=== PATIENT | female | born 1990 | race Caucasian/White ===

== ENCOUNTER 2017-10-04 21:33 | Emergency (ER) | payer MEDICAID ==
--- NOTE | 2017-10-04 22:06 | ER Report ---
History and Physical Time Seen By MD: 22:06 HPI/ROS CHIEF COMPLAINT: Neck pain HISTORY OF PRESENT ILLNESS: 27-year-old female patient presents to emergency room with complaint of neck pain. Patient states she does have pain that is proximal to the left ear that radiates down into the left arm, occasional she' ll have numbness and tingling in her fingers. Patient states that she currently is working as a after school teacher. She states that this started before she was caring any trays. Patient states that she does have a history of muscle spasms in her neck which have resulted in needing to get injections in the past. She states that she has not had any injury to her neck. She denies any weakness in her arms. She has no nausea, vomiting or diarrhea. Patient has not taken any medication for this. She has seen her chiropractor 2 this week with some improvement but no resolution. REVIEW OF SYSTEMS: Respiratory: No cough, no dyspnea. Cardiovascular: No chest pain, no palpitations. Gastrointestinal: No vomiting, no abdominal pain. Musculoskeletal: As noted above Allergies: Coded Allergies: No Known Drug Allergies (Unverified , 10/04/17) Home Meds Active Scripts Cyclobenzaprine Hcl (CYCLOBENZAPRINE HCL) 10 Mg Tablet, 10 MG PO TID Y for MUSCLE SPASMS, #15 TAB Prov:MIKE VILLA 10/04/17 Reported Medications [depression med] No Conflict Check 10/04/17 Vits W-Ca,Fe,Fa(<1MG) ( VITAMINS) 1 Each Tablet, 1 EACH PO DAILY, TAB 10/04/17 Past Medical/Surgical History Patient has a past medical history of migraines, fractures, depression, anxiety. Patient has surgical history of right knee surgery. Reviewed Nurses Notes: Yes Constitutional Vital Sign - Last 24 Hours 10/04/17 22:44 Temp 98.1 Pulse 84 Resp 14 B/P (MAP) 109/68 Pulse Ox 95 O2 Delivery Room Air Physical Exam General Appearance: The patient is alert, has no immediate need for airway protection and no current signs of toxicity. Respiratory: Chest is non tender, lungs are clear to auscultation. Cardiac: regular rate and rhythm Gastrointestinal: Abdomen is soft and non tender, no masses, bowel sounds normal. Musculoskeletal: Neck: Neck is stiff and tender. Patient does have a palpable cord running medially and laterally to the neck, tender to the touch. Patient has not had one located in the left clavicular region. Extremities have full range of motion and are non tender. Skin: No rashes or lesions. DIFFERENTIAL DIAGNOSIS: After history and physical exam differential diagnosis was considered for muscle spasm, arthritis, fracture. Medical Decision Making EKG/Imaging Imaging CERVICAL SPINE MIN 4 VIEW COMPARISONS: None. ADDITIONAL PERTINENT HISTORY: Neck pain FINDINGS: Vertebral body heights and alignment: Mild reversal of normal cervical lordosis centered at C6-C7. Vertebral bodies: Negative. Disc spaces: Negative. Craniocervical junction: Negative. Cervical thoracic junction: Negative. Prevertebral soft tissues: Negative. Surrounding soft tissues: Negative. IMPRESSION: 1. Mild reversal of normal cervical lordosis. 2. No other acute bony abnormality. Report Dictated By: Nic Montoya MD at 10/04/2017 10:43 PM Report E-Signed By: Nic Montoya MD at 10/04/2017 10:44 PM ED Course/Re-evaluation ED Course Patient was admitted to exam room, history and physical were obtained. Different diagnoses were considered. On examination patient did have some tenderness to the neck, she is able to point out specifics class where she does have some considerable muscle tightness. Patient states she has been limiting her movement due to pain. Patient denies having any injury to the neck. X-rays done of the cervical spine which showed a decreased lordosis. There is no acute osseous abnormality. Discussed findings with patient. We did do some trigger point injections to see if that would help loosen up the neck. She did have some mild improvement. We will go ahead and discharge her home this time with muscle relaxers. She is to take Tylenol or ibuprofen as needed for pain. She is to follow-up if condition worsens. Would like to follow-up with primary care provider in the next week for further evaluation and decide if she needs to have further imaging done. I discussed this with patient who verbalized understanding and agreement with plan. Decision to Disposition Date: Oct 04, 2017 Decision to Disposition Time: 23:04 Depart Departure Latest Vital Signs Vital Signs Date Time Temp Pulse Resp B/P (MAP) Pulse Ox O2 Delivery O2 Flow Rate FiO2 10/04/17 22:44 98.1 84 14 109/68 95 Room Air Impression: Primary Impression: Muscle spasms of neck Condition: Improved Disposition: HOME OR SELF-CARE New Scripts Cyclobenzaprine Hcl (CYCLOBENZAPRINE HCL) 10 Mg Tablet 10 MG PO TID Y for MUSCLE SPASMS, #15 TAB Prov: MIKE VILLA 10/04/17 Patient Instructions: Muscle Spasm (ED) Additional Instructions: Limit activity by pain. Apply heat to your neck. Get plenty of rest. Increase exercise, low impact exercise such as walking. Return to the ER if condition worsens; worsening numbness of the hand or neck pain. Follow up with a primary care provider in the next week. MIKE VILLA Oct 04, 2017 22:06
[2017-10-04 22:44] VITALS: BP 109/68
--- NOTE | 2017-10-04 22:48 | RADIOLOGY IMAGING REPORT ---
[place] [facility] [place] Claribel Bernstein : 1990 MR: [id number] V: [id number] EXAM DATE: ORDERING PHYSICIAN: MIKE VILLA TECHNOLOGIST: Location: Patient: Claribel Bernstein : 1990 Visit/Account:[id number] Date of Sevice: 10/04/2017 CERVICAL SPINE MIN 4 VIEW COMPARISONS: None. ADDITIONAL PERTINENT HISTORY: Neck pain FINDINGS: Vertebral body heights and alignment: Mild reversal of normal cervical lordosis centered at C6-C7. Vertebral bodies: Negative. Disc spaces: Negative. Craniocervical junction: Negative. Cervical thoracic junction: Negative. Prevertebral soft tissues: Negative. Surrounding soft tissues: Negative. IMPRESSION: 1. Mild reversal of normal cervical lordosis. 2. No other acute bony abnormality. Report Dictated By: Nic Montoya MD at 10/04/2017 10:43 PM Report E-Signed By: Nic Montoya MD at 10/04/2017 10:44 PM WSN:[id number]
[2017-10-04] MEDS ORDERED: PREN-127 PO (22:50)
[2017-10-04] MEDS ORDERED: depression med (22:51)
[2017-10-04] MEDS ORDERED: CYCL10TA29 PO (23:03)
[2017-10-04] MEDS ORDERED: CYCLOBENZAPRINE HCL 10 MG TH PO ONE (23:30)
[2017-10-13] MEDS ORDERED: BUPR200T34 PO (15:54)
[2017-10-13] MEDS ORDERED: BUPR-156 PO (16:07)
[2017-10-13] MEDS ORDERED: MELO-207 PO (16:20)
[2017-10-13] MEDS ORDERED: CYCL10TA29 PO (16:20)
== END 2017-10-04 23:31 | disposition home or self-care (01) ==
LOC: ER 22:03
DX: M62.838 Other muscle spasm (principal); M54.2 Cervicalgia
CPT/HCPCS: 72050; 99283

== ENCOUNTER → 2018-09-23 | Outpatient (CLI) | payer MEDICAID ==
[~2018-09-23] MED LIST: BUPR-156 PO; BUPR200T34 PO; CYCL10TA29 PO; MELO-207 PO; PREN-127 PO; depression med
--- NOTE | 2018-09-23 13:04 | RADIOLOGY IMAGING REPORT ---
FACILITY: [facility] PATIENT NAME: Claribel Bernstein : 1990 MR: [id number] V: [id number] EXAM DATE: ORDERING PHYSICIAN: JUD VALDIVIA TECHNOLOGIST: Location: [facility] [place] Patient: Claribel Bernstein : 1990 Visit/Account:[id number] Date of Sevice: 09/23/2018 XR WRIST 3 OR MORE VIEWS RT HISTORY: rt wrist pain Additional history: None COMPARISON: None. 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 Remaining osseous structures appear normal. J oints are unremarkable in appearance. 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 Exam otherwise normal Report Dictated By: Que Black MD at 09/23/2018 12:53 PM Report E-Signed By: Que Black MD at 09/23/2018 12:55 PM WSN:[id number]
== END ==
LOC: RAD 11:35
PROVIDERS: ATTEND Internal Medicine
DX: M77.9 Enthesopathy, unspecified (principal)

== ENCOUNTER → 2018-09-30 | Outpatient (CLI) | payer MEDICAID | LOC: LAB 16:14 | PROVIDERS: ATTEND Surgery | DX: D23.71 Other benign neoplasm of skin of right lower limb, including hip (principal) | CPT/HCPCS: 88305 ==